=== PATIENT | female | born 1970 | race African-American/Black ===

== ENCOUNTER → 2020-11-25 | Day surgery (SDC) | payer BC ==
[~2020-11-25] MED LIST: ARMOUR THYROID60 MG PO; LIDOCAINE HCL 2% LOCAL INJ 5 ML SDV VIAL INJ ONE; POVIDONE IODINE 0.05% 0.05 % ML PO ONE; PROPOFOL IV EMULSION 10 MG/ML 20 ML VIAL ONE
[2020-11-25 07:55] VITALS: BP 147/109
== END | disposition home or self-care (01) ==
LOC: ENDO 05:30
PROVIDERS: ATTEND Surgery
DX: T85.598A Other mechanical complication of other gastrointestinal prosthetic devices, implants and grafts, initial encounter (principal); K29.50 Unspecified chronic gastritis without bleeding; K20.90 Esophagitis, unspecified without bleeding; B96.81 Helicobacter pylori [H. pylori] as the cause of diseases classified elsewhere; K21.9 Gastro-esophageal reflux disease without esophagitis; Y83.2 Surgical operation with anastomosis, bypass or graft as the cause of abnormal reaction of the patient, or of later complication, without mention of misadventure at the time of the procedure; Z68.42 Body mass index [BMI] 45.0-49.9, adult
CPT/HCPCS: 43239; 81025; 88305; 88312; J2001; J2704